=== PATIENT | female | born 1970 | race Hispanic/Latino ===

== ENCOUNTER → 2017-09-28 | Outpatient (CLI) | payer MEDICAID ==
[~2017-09-28] MED LIST: ACET1TAB12 PO; ATOR20TA65 PO; DICY10 PO; FAMO-136 PO; FURO40SO PO; FURO40TA7 PO; GLIP5TAB11 PO; JANUVIA; LACT10SO PO; LEVO50TA11 PO; METF10004 PO; PANT40TA25 PO; RIFA550T PO; SITA100T12 PO; SPIR100T5 PO
== END | disposition home or self-care (01) ==
LOC: RAH 07:38
PROVIDERS: ATTEND Internal Medicine Gastroenterology
DX: K70.31 Alcoholic cirrhosis of liver with ascites (principal); K80.20 Calculus of gallbladder without cholecystitis without obstruction
CPT/HCPCS: 76700; 93975

== ENCOUNTER 2017-10-22 06:00 | Day surgery (SDC) | payer MEDICAID ==
[~2017-10-22] VITALS: Ht 149.9 cm; Wt 82.4 kg
[~2017-10-22 06:00] MED LIST changes: -ACET1TAB12 PO; -FAMO-136 PO; -FURO40TA7 PO; -SITA100T12 PO
[2017-10-22 06:16] VITALS: BP 96/52
[2017-10-22] MEDS ORDERED: SODIUM CHLORIDE 0.9% 1000ML 1,000 ML IV ONE (06:42)
[2017-10-22] MEDS ORDERED: GLYCOPYRROLATE 0.2 MG/ML 5 ML VIAL ONE (07:59)
[2017-10-22] MEDS ORDERED: PROPOFOL 1000 MG/100 ML 100 ML IV ONE (07:59)
[2017-10-22] MEDS ORDERED: LIDOCAINE HCL 2% 20ML ONE (08:00)
[2017-10-22 08:29] VITALS: BP 88/45
[2017-10-22 08:39] VITALS: BP 95/55
[2017-10-22 08:54] VITALS: BP 105/65
== END 2017-10-22 09:25 | disposition home or self-care (01) ==
LOC: DAH 06:00
PROVIDERS: ATTEND Internal Medicine Gastroenterology
DX: D12.2 Benign neoplasm of ascending colon (principal); K57.30 Diverticulosis of large intestine without perforation or abscess without bleeding; C18.7 Malignant neoplasm of sigmoid colon; E11.9 Type 2 diabetes mellitus without complications; E78.5 Hyperlipidemia, unspecified; Z98.890 Other specified postprocedural states; Z98.51 Tubal ligation status; K70.30 Alcoholic cirrhosis of liver without ascites; Z68.36 Body mass index [BMI] 36.0-36.9, adult; Z79.899 Other long term (current) drug therapy; Z79.84 Long term (current) use of oral hypoglycemic drugs; K26.9 Duodenal ulcer, unspecified as acute or chronic, without hemorrhage or perforation; E66.9 Obesity, unspecified
CPT/HCPCS: 45380; 45381; 45385; 82948; 88305; A4606; J2704; J3490 ×2; J7030

== ENCOUNTER → 2017-11-16 | Outpatient (CLI) | payer MEDICAID ==
[~2017-11-16] MED LIST changes: +ACET1TAB12 PO; +FURO40TA7 PO; +IOPAMIDOL-370 100 ML VIAL IV ONE; +SITA100T12 PO
== END | disposition home or self-care (01) ==
LOC: OIH 07:59
PROVIDERS: ATTEND Internal Medicine
DX: C18.9 Malignant neoplasm of colon, unspecified (principal); R16.1 Splenomegaly, not elsewhere classified
CPT/HCPCS: 71270; 74178; Q9967

== ENCOUNTER 2017-11-26 13:30 | Inpatient (IN) | payer MEDICAID ==
[~2017-11-26] VITALS: Ht 149.9 cm; Wt 84.2 kg
[~2017-11-26 13:30] MED LIST changes: -ACET1TAB12 PO; -ATOR20TA65 PO; -FURO40SO PO; -FURO40TA7 PO; -IOPAMIDOL-370 100 ML VIAL IV ONE; -JANUVIA; -LACT10SO PO; -SITA100T12 PO
[2017-11-26 14:30] LABS: EOSINOPHILS % (AUTO) 3.9 % (0.0-8.0); HEMATOCRIT 36.7 % (36-48); LYMPHOCYTES % (AUTO) 25.3 % (21.0-51.0); MEAN CORPUSCULAR HEMOGLOBIN 31.2 pg (27.0-33.0); MEAN CORPUSCULAR HGB CONC 33.6 g/dL (32.0-36.0); MEAN CORPUSCULAR VOLUME 92.8 fL (79-99); MONOCYTES % (AUTO) 9.3 % (3.0-13.0); NEUTROPHILS % (AUTO) 60.5 % (40.0-77.0); NUCLEATED RED BLOOD CELLS 0.2 % (0.0-0.19); PLATELET COUNT (AUTO) 62 K/uL (130-400); RED BLOOD CELL COUNT(AUTO) 3.96 MIL/uL (4.00-5.50); RED CELL DISTRIBUTION WIDTH 15.4 % (11.0-15.5); WHITE BLOOD COUNT (AUTO) 3.2 K/uL (4.8-10.8)
[2017-11-26 14:31] LABS: APPEARANCE,URINE Cloudy (CLEAR); BILIRUBIN,URINE Negative (NEGATIVE); COLOR,URINE Yellow (YELLOW); GLUCOSE, URINE (UA) >=1000 mg/dL (NEGATIVE); KETONES,URINE Negative (NEGATIVE); LEUKOCYTE ESTERASE ,URINE Negative (NEGATIVE); NITRATE,URINE Negative (NEGATIVE); OCCULT BLOOD,URINE Negative (NEGATIVE); PROTEIN,URINE Negative (NEGATIVE)
[2017-11-26 14:36] VITALS: BP 117/61
[2017-11-26 14:38] LABS: CREATININE 1.1 mg/dL (0.5-1.5); POTASSIUM 3.7 mmol/L (3.5-5.1)
[2017-11-26 14:56] LABS: BACTERIA,URINE Rare /HPF (None Seen); RBC,URINE None Seen /HPF (0-1); WBC,URINE 0-1 /HPF (0-1)
[2017-11-26] MEDS ORDERED: ATOR20TA65 PO (15:00)
[2017-11-26] MEDS ORDERED: SITA100T12 PO (15:00)
[2017-11-26] MEDS ORDERED: FURO40TA7 PO (15:03)
[2017-11-26] MEDS ORDERED: LACT10SO PO (15:04)
[2017-11-26] MEDS: CEFOXITIN SODIUM 2 GM VIAL IVP SCH (16:00)
[2017-11-27] MEDS: CEFOXITIN SODIUM 2 GM VIAL IVP SCH (16:00)
[2017-11-28] MEDS: CEFOXITIN SODIUM 2 GM VIAL IVP SCH (16:00)
[2017-11-29] MEDS: CEFOXITIN SODIUM 2 GM VIAL IVP SCH (16:00)
[2017-11-30] VITALS (25 sets, daily range): BP systolic 110–141; BP diastolic 60–85
[2017-11-30] MEDS ORDERED: SODIUM CHLORIDE 0.9% 1000ML 1,000 ML IV ONE (06:58)
[2017-11-30] MEDS ORDERED: LIDOCAINE PF 2% 5ML ABBOJECT ONE (08:01)
[2017-11-30] MEDS ORDERED: ONDANSETRON HCL MDV 20ML 2 MG/ML VIAL ONE ×2 (08:01→08:03)
[2017-11-30] MEDS ORDERED: PROPOFOL 10 MG/ML 20ML VIAL IV ONE ×2 (08:01→11:25)
[2017-11-30] MEDS ORDERED: ROCURONIUM BROMIDE 10MG/1ML 5ML VL ONE ×2 (08:01→09:28)
[2017-11-30] MEDS ORDERED: FENTANYL CITRATE PF 50 MCG/1 ML 5ML AMP IV ONE ×3 (08:02→10:46)
[2017-11-30] MEDS ORDERED: MIDAZOLAM HCL 1 MG/ML 2ML VIAL ONE (08:03)
[2017-11-30] MEDS ORDERED: ALBUMIN (HUMAN) 5% 250 ML IV ONE (08:23)
[2017-11-30] MEDS: CEFOXITIN SODIUM 2 GM VIAL IVP SCH (08:45)
[2017-11-30] MEDS ORDERED: PHENYLEPHRINE HCL 10 MG/ML 1ML VIAL IV ONE (09:29)
[2017-11-30] MEDS ORDERED: SODIUM CHLORIDE 0.9% 10 ML VIAL ONE (09:29)
[2017-11-30] MEDS ORDERED: TRANEXAMIC ACID 1000MG/10ML IV ONE (09:57)
[2017-11-30] MEDS ORDERED: LIDOCAINE HCL 2% JELLY 5 ML ONE (10:55)
[2017-11-30] MEDS: CEFOXITIN SODIUM 2 GM VIAL ONE ×2 (11:09→11:10)
[2017-11-30] MEDS ORDERED: FUROSEMIDE 10 MG/ML 4ML VIAL ONE (11:10)
[2017-11-30] MEDS ORDERED: ONDANSETRON HCL 4 MG/2 ML VIAL IVP PRN (11:30)
[2017-11-30] MEDS ORDERED: MORPHINE-NS 50 MG/50 ML 50 ML IV PRN (11:30)
[2017-11-30] MEDS ORDERED: INSULIN HUMULIN R 100 UNIT/ML 3ML SQ PRN (11:30)
[2017-11-30] MEDS ORDERED: MEPERIDINE-PF 25 MG/ML SYG ONE (11:59)
[2017-11-30 12:03] LABS: HEMATOCRIT 34.3 % (36-48); MEAN CORPUSCULAR HEMOGLOBIN 32.1 pg (27.0-33.0); MEAN CORPUSCULAR HGB CONC 34.5 g/dL (32.0-36.0); MEAN CORPUSCULAR VOLUME 93.1 fL (79-99); PLATELET COUNT (AUTO) 117 K/uL (130-400); RED BLOOD CELL COUNT(AUTO) 3.68 MIL/uL (4.00-5.50); RED CELL DISTRIBUTION WIDTH 15.6 % (11.0-15.5); WHITE BLOOD COUNT (AUTO) 10.3 K/uL (4.8-10.8)
[2017-11-30] MEDS ORDERED: METOPROLOL TARTRATE 1 MG/ML 5ML VIAL IV ONE (12:03)
[2017-11-30 12:13] LABS: CREATININE 1.6 mg/dL (0.5-1.5); POTASSIUM 4.8 mmol/L (3.5-5.1)
[2017-11-30] MEDS: SODIUM CHLORIDE 0.9% 1000ML 1,000 ML IV SCH ×2 (13:35→23:13)
[2017-11-30] MEDS: CEFOXITIN SODIUM 1 GM VIAL IVP SCH ×2 (16:30→23:13)
[2017-11-30] MEDS ORDERED: CEFOXITIN 1GM+NS 100ML 100 ML IV SCH (17:00)
[2017-11-30] MEDS: FAMOTIDINE/PF 20 MG/2 ML VIAL IV SCH (20:07)
[2017-12-01] VITALS (7 sets, daily range): BP systolic 104–110; BP diastolic 56–65
[2017-12-01] MEDS: SODIUM CHLORIDE 0.9% 1000ML 1,000 ML IV SCH (03:29)
[2017-12-01] MEDS: CEFOXITIN SODIUM 1 GM VIAL IVP SCH (04:45)
[2017-12-01 05:43] LABS: BASOPHILS % (AUTO) 0.2 % (0.0-5.0); HEMATOCRIT 34.2 % (36-48); LYMPHOCYTES % (AUTO) 6.1 % (21.0-51.0); MEAN CORPUSCULAR HEMOGLOBIN 31.3 pg (27.0-33.0); MEAN CORPUSCULAR HGB CONC 33.7 g/dL (32.0-36.0); MONOCYTES % (AUTO) 10.3 % (3.0-13.0); NEUTROPHILS % (AUTO) 83.4 % (40.0-77.0); PLATELET COUNT (AUTO) 99 K/uL (130-400); RED BLOOD CELL COUNT(AUTO) 3.67 MIL/uL (4.00-5.50); RED CELL DISTRIBUTION WIDTH 15.4 % (11.0-15.5); WHITE BLOOD COUNT (AUTO) 11.4 K/uL (4.8-10.8)
[2017-12-01 05:51] LABS: CREATININE 1.2 mg/dL (0.5-1.5); POTASSIUM 4.4 mmol/L (3.5-5.1)
[2017-12-01] MEDS: FAMOTIDINE/PF 20 MG/2 ML VIAL IV SCH ×2 (11:03→21:18)
[2017-12-01] MEDS: FUROSEMIDE 10 MG/ML 4ML VIAL IV SCH (11:03)
[2017-12-02 04:00] VITALS: BP 118/56
[2017-12-02] MEDS: SODIUM CHLORIDE 0.9% 1000ML 1,000 ML IV SCH ×2 (05:07→17:03)
[2017-12-02 05:19] LABS: BASOPHILS % (AUTO) 0.4 % (0.0-5.0); EOSINOPHILS % (AUTO) 0.6 % (0.0-8.0); HEMATOCRIT 31.8 % (36-48); LYMPHOCYTES % (AUTO) 11.9 % (21.0-51.0); MEAN CORPUSCULAR HEMOGLOBIN 32.1 pg (27.0-33.0); MEAN CORPUSCULAR HGB CONC 34.5 g/dL (32.0-36.0); MONOCYTES % (AUTO) 12.1 % (3.0-13.0); PLATELET COUNT (AUTO) 78 K/uL (130-400); RED BLOOD CELL COUNT(AUTO) 3.42 MIL/uL (4.00-5.50); RED CELL DISTRIBUTION WIDTH 15.4 % (11.0-15.5); WHITE BLOOD COUNT (AUTO) 8.3 K/uL (4.8-10.8)
[2017-12-02 05:28] LABS: CREATININE 0.9 mg/dL (0.5-1.5)
[2017-12-02 08:40] VITALS: BP 112/58
[2017-12-02] MEDS: FAMOTIDINE/PF 20 MG/2 ML VIAL IV SCH ×2 (10:03→20:46)
[2017-12-02] MEDS: FUROSEMIDE 10 MG/ML 4ML VIAL IV SCH (10:04)
[2017-12-02] MEDS ORDERED: PHENOL 177 ML BOTTLE PO PRN (11:00)
[2017-12-02 11:08] VITALS: BP 111/66
[2017-12-02 16:18] VITALS: BP 105/61
[2017-12-02 19:21] VITALS: BP 105/58
[2017-12-02 23:21] VITALS: BP 111/61
[2017-12-03 03:26] VITALS: BP 113/72
[2017-12-03 04:31] LABS: CREATININE 0.8 mg/dL (0.5-1.5); POTASSIUM 3.7 mmol/L (3.5-5.1)
[2017-12-03 04:32] LABS: BASOPHILS % (AUTO) 0.3 % (0.0-5.0); EOSINOPHILS % (AUTO) 0.9 % (0.0-8.0); HEMATOCRIT 30.5 % (36-48); LYMPHOCYTES % (AUTO) 11.6 % (21.0-51.0); MEAN CORPUSCULAR HEMOGLOBIN 31.9 pg (27.0-33.0); MEAN CORPUSCULAR HGB CONC 34.3 g/dL (32.0-36.0); MEAN CORPUSCULAR VOLUME 93.1 fL (79-99); MONOCYTES % (AUTO) 11.2 % (3.0-13.0); PLATELET COUNT (AUTO) 62 K/uL (130-400); RED BLOOD CELL COUNT(AUTO) 3.28 MIL/uL (4.00-5.50); RED CELL DISTRIBUTION WIDTH 15.1 % (11.0-15.5); WHITE BLOOD COUNT (AUTO) 7.8 K/uL (4.8-10.8)
[2017-12-03 08:00] VITALS: BP 108/62
[2017-12-03] MEDS: FAMOTIDINE/PF 20 MG/2 ML VIAL IV SCH ×2 (11:19→20:51)
[2017-12-03] MEDS: FUROSEMIDE 10 MG/ML 4ML VIAL IV SCH (11:19)
[2017-12-03] MEDS: SODIUM CHLORIDE 0.9% 1000ML 1,000 ML IV SCH (11:26)
[2017-12-03 12:00] VITALS: BP 122/76
[2017-12-03] MEDS ORDERED: ACETAMINOPHEN-CODEINE 300/30MG TAB PO PRN (12:45)
[2017-12-03 16:00] VITALS: BP 102/55
[2017-12-03 20:00] VITALS: BP 124/66
[2017-12-03] MEDS: ACETAMINOPHEN-CODEINE 300/30MG TAB PO PRN (20:55)
[2017-12-03 23:46] VITALS: BP 102/54
[2017-12-04 03:47] VITALS: BP 94/52
[2017-12-04] MEDS: ACETAMINOPHEN-CODEINE 300/30MG TAB PO PRN ×2 (06:02→14:05)
[2017-12-04 08:00] VITALS: BP 104/60
[2017-12-04] MEDS: FUROSEMIDE 10 MG/ML 4ML VIAL IV SCH (09:38)
[2017-12-04] MEDS: FAMOTIDINE/PF 20 MG/2 ML VIAL IV SCH (09:38)
[2017-12-04] MEDS: SODIUM CHLORIDE 0.9% 1000ML 1,000 ML IV SCH (10:00)
[2017-12-04 12:00] VITALS: BP 96/87
[2017-12-04] MEDS ORDERED: ACET1TAB12 PO (12:32)
== END 2017-12-04 15:15 | disposition home or self-care (01) | DRG 231 ==
LOC: EDSTATUS 13:30 → DAHIP 11-30 05:53 → 3BH 11-30 13:06
PROVIDERS: ADMIT Surgery; ATTEND Surgery
PROC: 0DBN0ZZ Excision of Sigmoid Colon, Open Approach (ICD-10-PCS; principal; 2017-11-30 08:28)
PROC: 30233R1 Transfusion of Nonautologous Platelets into Peripheral Vein, Percutaneous Approach (ICD-10-PCS; 2017-11-30 08:28)
DX: C18.7 Malignant neoplasm of sigmoid colon (principal); D69.6 Thrombocytopenia, unspecified; R18.8 Other ascites; K74.60 Unspecified cirrhosis of liver; E11.9 Type 2 diabetes mellitus without complications; K66.0 Peritoneal adhesions (postprocedural) (postinfection); Z98.891 History of uterine scar from previous surgery; E07.9 Disorder of thyroid, unspecified
CPT/HCPCS: 36415; 80048; 81001; 82948; 85025; 85027; 86850; 86900; 86901; 86922; 88309; A4218; A4344; J0694; J1940; J2001; J2175; J2250; J2270; J2370; J2704; J3010; J3490; J7030; P9034; P9045

== ENCOUNTER → 2018-08-19 | Outpatient (CLI) | payer MEDICAID ==
[~2018-08-19] MED LIST changes: +ATOR20TA65 PO; +FURO40TA7 PO; +IOHEXOL-350 50ML VIAL IV ONE; +LACT10SO PO; +METF-446 PO; -METF10004 PO; +SITA100T12 PO
== END | disposition home or self-care (01) ==
LOC: RAH 07:39
PROVIDERS: ATTEND Internal Medicine Gastroenterology
DX: K70.31 Alcoholic cirrhosis of liver with ascites (principal); K80.20 Calculus of gallbladder without cholecystitis without obstruction; J90 Pleural effusion, not elsewhere classified; J98.11 Atelectasis; I86.8 Varicose veins of other specified sites; C18.9 Malignant neoplasm of colon, unspecified; R77.2 Abnormality of alphafetoprotein; I70.90 Unspecified atherosclerosis
CPT/HCPCS: 74170; Q9967

== ENCOUNTER 2018-08-22 00:21 | Inpatient (IN) | payer MEDICAID ==
[~2018-08-22] VITALS: Ht 149.9 cm; Wt 72.6 kg
[~2018-08-22 00:21] MED LIST changes: -IOHEXOL-350 50ML VIAL IV ONE
[2018-08-22] MEDS ORDERED: ONDANSETRON HCL 4 MG/2 ML VIAL ONE ×2 (00:41→11:35)
[2018-08-22] MEDS ORDERED: FENTANYL CITRATE PF 50 MCG/1 ML 2ML VIAL ONE ×2 (00:42→04:02)
[2018-08-22 00:51] LABS: APPEARANCE,URINE TURBID (CLEAR); BILIRUBIN,URINE NEGATIVE (NEGATIVE); GLUCOSE, URINE (UA) >=1000 mg/dL (NEGATIVE); KETONES,URINE NEGATIVE (NEGATIVE); LEUKOCYTE ESTERASE ,URINE MODERATE (NEGATIVE); NITRATE,URINE NEGATIVE (NEGATIVE); OCCULT BLOOD,URINE LARGE (NEGATIVE); PROTEIN,URINE NEGATIVE (NEGATIVE)
[2018-08-22 00:53] LABS: BASOPHILS % (AUTO) 0.8 % (0.0-5.0); EOSINOPHILS % (AUTO) 1.7 % (0.0-8.0); HEMATOCRIT 34.9 % (36-48); MEAN CORPUSCULAR HEMOGLOBIN 32.7 pg (27.0-33.0); MEAN CORPUSCULAR HGB CONC 33.6 g/dL (32.0-36.0); MEAN CORPUSCULAR VOLUME 97.3 fL (79-99); MONOCYTES % (AUTO) 6.1 % (3.0-13.0); NEUTROPHILS % (AUTO) 66.4 % (40.0-77.0); NUCLEATED RED BLOOD CELLS 0.1 % (0.0-0.19); RED BLOOD CELL COUNT(AUTO) 3.59 MIL/uL (4.00-5.50); RED CELL DISTRIBUTION WIDTH 15.8 % (11.0-15.5); WHITE BLOOD COUNT (AUTO) 3.2 K/uL (4.8-10.8)
[2018-08-22 00:59] LABS: COLOR,URINE Straw (YELLOW)
[2018-08-22 01:10] LABS: ALBUMIN 2.6 g/dL (3.5-5.0); BILIRUBIN,TOTAL 1.5 mg/dL (0.2-1.0); CREATININE 1.1 mg/dL (0.5-1.5); POTASSIUM 4.7 mmol/L (3.5-5.1); TOTAL PROTEIN, SERUM 6.7 g/dL (6.0-8.3)
[2018-08-22 01:31] LABS: BACTERIA,URINE Few /HPF (None Seen)
[2018-08-22] MEDS ORDERED: INSULIN HUMULIN R 100 UNIT/ML 3ML ONE ×3 (01:40→17:50)
[2018-08-22 02:35] LABS: PLATELET COUNT (AUTO) 37 K/uL (130-400)
[2018-08-22] MEDS ORDERED: ONDANSETRON HCL 4 MG/2 ML VIAL IV PRN (03:15)
[2018-08-22] MEDS ORDERED: MORPHINE SULFATE 2 MG/ML 1ML SYG IV PRN (03:15)
[2018-08-22] MEDS ORDERED: PHARMACY COMMUNICATION MISC SCH (03:30)
[2018-08-22] MEDS ORDERED: SODIUM CHLORIDE 0.9% 1000ML 1,000 ML IV ONE (04:01)
[2018-08-22] MEDS ORDERED: ZOSYN 3.375GM+NS 50ML 50 ML IV ONE ×2 (04:02→11:44)
[2018-08-22] MEDS ORDERED: ZOSYN 3.375GM+NS 50ML 50 ML IV SCH (05:00)
[2018-08-22] MEDS ORDERED: INSULIN HUMULIN R 100 UNIT/ML 3ML SQ SCH (07:30)
[2018-08-22] MEDS: FAMOTIDINE/PF 20 MG/2 ML VIAL IV SCH ×2 (09:00→21:10)
[2018-08-22] MEDS ORDERED: FAMOTIDINE/PF 20 MG/2 ML VIAL IV ONE (09:49)
[2018-08-22] MEDS ORDERED: LACTULOSE 20 GM/30 ML UDCUP PO PRN (11:15)
[2018-08-22] MEDS ORDERED: LACTULOSE 20 GM/30 ML UDCUP ONE (11:22)
[2018-08-22] MEDS ORDERED: MORPHINE SULFATE 2 MG/ML 1ML SYG ONE (11:35)
--- NOTE | 2018-08-22 15:24 | NUR ---
DC Plan Discussed dcp w/ patient. Lives w/ dad. Has provider that cooks, cleans and assists w/ bathing. Denies any HH or DME. States father or brother drives patient. Denies recent falls. States feels safe returning home to same setting. DCP is back to home. CD Addendum: 08/22/18 at 1526 by OLY ALMANZA CM Amended: Links added.
[2018-08-22] MEDS: INSULIN HUMULIN R 100 UNIT/ML 3ML SQ SCH ×2 (16:30→21:08)
--- NOTE | 2018-08-22 18:06 | NUR ---
REPORT RECEIVED FROM RONIT IN ER FOR PT. GOING TO ROOM 330
[2018-08-22 18:20] VITALS: BP 92/54
--- NOTE | 2018-08-22 18:20 | NUR ---
PT. NOW TO ROOM 330, AWAKE, ALERT AND IN NO DISTRESS AT THIS TIME. ADMISSION DATABASE WILL BE DONE.
--- NOTE | 2018-08-22 18:45 | NUR ---
HAS PROVIDER SERVICES Addendum: 08/22/18 at 1849 by ALMA ROSA GALLARDO RN RN Amended: Links added.
[2018-08-22 21:09] VITALS: BP 85/46
[2018-08-22] MEDS: ZOSYN 3.375GM+NS 50ML 50 ML IV SCH (21:10)
[2018-08-22] MEDS: ATORVASTATIN CALCIUM 20 MG TABLET PO SCH (21:10)
[2018-08-22] MEDS: RIFAXIMIN 550 MG TABLET PO SCH (21:11)
[2018-08-23] VITALS (7 sets, daily range): BP systolic 84–97; BP diastolic 44–63
[2018-08-23] MEDS ORDERED: SODIUM CHLORIDE 0.9% 1000ML 1,000 ML IV SCH (01:00)
[2018-08-23 05:22] LABS: HEMATOCRIT 29.5 % (36-48); MEAN CORPUSCULAR HEMOGLOBIN 32.4 pg (27.0-33.0); MEAN CORPUSCULAR HGB CONC 33.8 g/dL (32.0-36.0); MEAN CORPUSCULAR VOLUME 96.1 fL (79-99); NUCLEATED RED BLOOD CELLS 0.2 % (0.0-0.19); PLATELET COUNT (AUTO) 30 K/uL (130-400); RED BLOOD CELL COUNT(AUTO) 3.07 MIL/uL (4.00-5.50); RED CELL DISTRIBUTION WIDTH 15.7 % (11.0-15.5); WHITE BLOOD COUNT (AUTO) 3.1 K/uL (4.8-10.8)
[2018-08-23] MEDS: LEVOTHYROXINE 50 MCG TABLET PO SCH (05:31)
[2018-08-23 05:41] LABS: BILIRUBIN,TOTAL 2.2 mg/dL (0.2-1.0); CREATININE 0.8 mg/dL (0.5-1.5); POTASSIUM 3.7 mmol/L (3.5-5.1); TOTAL PROTEIN, SERUM 5.2 g/dL (6.0-8.3)
[2018-08-23] MEDS: INSULIN HUMULIN R 100 UNIT/ML 3ML SQ SCH ×4 (06:05→22:00)
[2018-08-23] MEDS: SPIRONOLACTONE 25 MG TAB PO SCH (09:42)
[2018-08-23] MEDS: ZOSYN 3.375GM+NS 50ML 50 ML IV SCH ×2 (09:43→22:03)
[2018-08-23] MEDS: RIFAXIMIN 550 MG TABLET PO SCH ×2 (09:43→22:03)
[2018-08-23] MEDS: FUROSEMIDE 40 MG TABLET PO SCH (09:43)
[2018-08-23] MEDS: LACTULOSE 20 GM/30 ML UDCUP PO SCH (09:43)
[2018-08-23] MEDS: FAMOTIDINE/PF 20 MG/2 ML VIAL IV SCH ×2 (09:43→22:03)
[2018-08-23] MEDS: MORPHINE SULFATE 2 MG/ML 1ML SYG IV PRN (17:32)
[2018-08-23] MEDS: ATORVASTATIN CALCIUM 20 MG TABLET PO SCH (22:03)
[2018-08-24] MEDS: MORPHINE SULFATE 2 MG/ML 1ML SYG IV PRN ×2 (00:59→21:51)
[2018-08-24 01:38] VITALS: BP 93/49
[2018-08-24 05:08] LABS: CREATININE 0.9 mg/dL (0.5-1.5); POTASSIUM 3.7 mmol/L (3.5-5.1)
[2018-08-24 05:12] LABS: BASOPHILS % (AUTO) 0.9 % (0.0-5.0); EOSINOPHILS % (AUTO) 3.1 % (0.0-8.0); LYMPHOCYTES % (AUTO) 21.3 % (21.0-51.0); MEAN CORPUSCULAR HEMOGLOBIN 32.4 pg (27.0-33.0); MEAN CORPUSCULAR HGB CONC 33.8 g/dL (32.0-36.0); MEAN CORPUSCULAR VOLUME 95.8 fL (79-99); MONOCYTES % (AUTO) 12.5 % (3.0-13.0); NEUTROPHILS % (AUTO) 62.2 % (40.0-77.0); NUCLEATED RED BLOOD CELLS 0.2 % (0.0-0.19); PLATELET COUNT (AUTO) 35 K/uL (130-400); RED BLOOD CELL COUNT(AUTO) 3.03 MIL/uL (4.00-5.50); RED CELL DISTRIBUTION WIDTH 15.7 % (11.0-15.5); WHITE BLOOD COUNT (AUTO) 3.6 K/uL (4.8-10.8)
[2018-08-24] MEDS: LEVOTHYROXINE 50 MCG TABLET PO SCH (05:15)
[2018-08-24 05:53] VITALS: BP 95/51
[2018-08-24] MEDS: INSULIN HUMULIN R 100 UNIT/ML 3ML SQ SCH ×4 (06:14→21:44)
[2018-08-24 08:00] VITALS: BP 88/55
[2018-08-24] MEDS: FUROSEMIDE 40 MG TABLET PO SCH (09:00)
[2018-08-24] MEDS: SPIRONOLACTONE 25 MG TAB PO SCH (09:00)
[2018-08-24] MEDS: LACTULOSE 20 GM/30 ML UDCUP PO SCH (09:37)
[2018-08-24] MEDS: FAMOTIDINE/PF 20 MG/2 ML VIAL IV SCH ×2 (09:37→21:51)
[2018-08-24] MEDS: RIFAXIMIN 550 MG TABLET PO SCH ×2 (09:37→21:52)
[2018-08-24] MEDS: ZOSYN 3.375GM+NS 50ML 50 ML IV SCH ×2 (09:38→21:52)
[2018-08-24] MEDS ORDERED: MECLIZINE HCL 12.5 MG TABLET PO PRN (11:00)
[2018-08-24 12:00] VITALS: BP_SYST 100; BP_SYST 106; BP_SYST 97; BP_DIAS 63; BP_DIAS 69
[2018-08-24] MEDS ORDERED: TRAMADOL HCL 50 MG TABLET PO PRN (15:45)
[2018-08-24 16:00] VITALS: BP 96/61
[2018-08-24 20:00] VITALS: BP 126/72
[2018-08-24] MEDS: ATORVASTATIN CALCIUM 20 MG TABLET PO SCH (21:52)
[2018-08-25] VITALS: BP 104/58
[2018-08-25 03:05] VITALS: BP 96/57
[2018-08-25 05:02] LABS: BASOPHILS % (AUTO) 0.9 % (0.0-5.0); EOSINOPHILS % (AUTO) 2.2 % (0.0-8.0); HEMATOCRIT 29.5 % (36-48); LYMPHOCYTES % (AUTO) 24.7 % (21.0-51.0); MEAN CORPUSCULAR HEMOGLOBIN 32.1 pg (27.0-33.0); MEAN CORPUSCULAR HGB CONC 33.3 g/dL (32.0-36.0); MEAN CORPUSCULAR VOLUME 96.4 fL (79-99); MONOCYTES % (AUTO) 20.3 % (3.0-13.0); NEUTROPHILS % (AUTO) 51.9 % (40.0-77.0); NUCLEATED RED BLOOD CELLS 0.2 % (0.0-0.19); PLATELET COUNT (AUTO) 45 K/uL (130-400); RED BLOOD CELL COUNT(AUTO) 3.06 MIL/uL (4.00-5.50); RED CELL DISTRIBUTION WIDTH 15.4 % (11.0-15.5); WHITE BLOOD COUNT (AUTO) 3.2 K/uL (4.8-10.8)
[2018-08-25 05:18] LABS: CREATININE 0.8 mg/dL (0.5-1.5); POTASSIUM 3.7 mmol/L (3.5-5.1)
[2018-08-25] MEDS: INSULIN HUMULIN R 100 UNIT/ML 3ML SQ SCH ×2 (05:40→11:53)
[2018-08-25] MEDS: LEVOTHYROXINE 50 MCG TABLET PO SCH (05:41)
[2018-08-25 08:00] VITALS: BP 90/57
[2018-08-25] MEDS: ZOSYN 3.375GM+NS 50ML 50 ML IV SCH (09:00)
[2018-08-25] MEDS: SPIRONOLACTONE 25 MG TAB PO SCH (09:00)
[2018-08-25] MEDS: FUROSEMIDE 40 MG TABLET PO SCH (09:00)
[2018-08-25] MEDS ORDERED: TRAM50TA4 PO (09:17)
[2018-08-25] MEDS ORDERED: MECL12.585 PO (09:17)
[2018-08-25] MEDS: LACTULOSE 20 GM/30 ML UDCUP PO SCH (09:55)
[2018-08-25] MEDS: RIFAXIMIN 550 MG TABLET PO SCH (09:55)
[2018-08-25] MEDS: FAMOTIDINE/PF 20 MG/2 ML VIAL IV SCH (09:56)
--- NOTE | 2018-08-25 11:05 | NUR ---
Diet Education RD Provided Low Fat diet Education. Patient was engaged and verbalized understanding. Discussed favorite foods and substitutions. RD also provided reference materials and handouts. RD to follow up. Addendum: 08/25/18 at 15[address]L PÉREZ RD RD Amended: Links added.
[2018-08-25 12:00] VITALS: BP 136/87
== END 2018-08-25 14:05 | disposition home or self-care (01) | DRG 463 ==
LOC: EDH 00:21 → EDHIP 00:22 → 3AH 18:19
PROVIDERS: ADMIT Hospitalist; ATTEND Hospitalist
DX: N39.0 Urinary tract infection, site not specified (principal); E43 Unspecified severe protein-calorie malnutrition; D61.810 Antineoplastic chemotherapy induced pancytopenia; I95.9 Hypotension, unspecified; K80.00 Calculus of gallbladder with acute cholecystitis without obstruction; E87.1 Hypo-osmolality and hyponatremia; E83.51 Hypocalcemia; K70.30 Alcoholic cirrhosis of liver without ascites; E03.9 Hypothyroidism, unspecified; E11.9 Type 2 diabetes mellitus without complications; T45.1X5A Adverse effect of antineoplastic and immunosuppressive drugs, initial encounter; Y92.89 Other specified places as the place of occurrence of the external cause; Z85.038 Personal history of other malignant neoplasm of large intestine; Z80.0 Family history of malignant neoplasm of digestive organs; Z82.3 Family history of stroke; Z87.891 Personal history of nicotine dependence; Z79.84 Long term (current) use of oral hypoglycemic drugs; Z68.32 Body mass index [BMI] 32.0-32.9, adult
CPT/HCPCS: 36415; 76705; 80048; 80053; 81001; 82948; 83690; 85025; 85027; 87077; 87088; 87186; G0378; J1815; J2405; J2543; J3010; J3490; J7030

== ENCOUNTER 2018-09-20 08:56 | Emergency (ER) | payer MEDICAID ==
[~2018-09-20 08:56] MED LIST changes: +MECL12.585 PO; +TRAM50TA4 PO
[2018-09-20 09:24] LABS: APPEARANCE,URINE Clear (CLEAR); BILIRUBIN,URINE Negative (NEGATIVE); COLOR,URINE Yellow (YELLOW); GLUCOSE, URINE (UA) 250 mg/dL (NEGATIVE); KETONES,URINE Negative (NEGATIVE); LEUKOCYTE ESTERASE ,URINE Trace (NEGATIVE); NITRATE,URINE Negative (NEGATIVE); OCCULT BLOOD,URINE Negative (NEGATIVE); PROTEIN,URINE Negative (NEGATIVE)
[2018-09-20 09:33] LABS: BACTERIA,URINE Rare /HPF (None Seen); RBC,URINE 0-1 /HPF (0-1); SQUAMOUS EPITHELIAL CELL,UR Rare /HPF (0-2); WBC,URINE 0-1 /HPF (0-1)
[2018-09-20] MEDS ORDERED: LACTULOSE 20 GM/30 ML UDCUP ONE (10:08)
[2018-09-20 11:09] LABS: BASOPHILS % (AUTO) 0.7 % (0.0-5.0); EOSINOPHILS % (AUTO) 2.5 % (0.0-8.0); HEMATOCRIT 34.5 % (36-48); LYMPHOCYTES % (AUTO) 17.6 % (21.0-51.0); MEAN CORPUSCULAR HEMOGLOBIN 32.4 pg (27.0-33.0); MEAN CORPUSCULAR HGB CONC 33.9 g/dL (32.0-36.0); MEAN CORPUSCULAR VOLUME 95.3 fL (79-99); MONOCYTES % (AUTO) 11.4 % (3.0-13.0); NEUTROPHILS % (AUTO) 67.8 % (40.0-77.0); PLATELET COUNT (AUTO) 40 K/uL (130-400); RED BLOOD CELL COUNT(AUTO) 3.61 MIL/uL (4.00-5.50); RED CELL DISTRIBUTION WIDTH 16.4 % (11.0-15.5); WHITE BLOOD COUNT (AUTO) 3.8 K/uL (4.8-10.8)
[2018-09-20 11:21] LABS: POTASSIUM 4.3 mmol/L (3.5-5.1)
[2018-09-20 11:22] LABS: ALBUMIN 2.6 g/dL (3.5-5.0); BILIRUBIN,TOTAL 1.4 mg/dL (0.2-1.0); TOTAL PROTEIN, SERUM 6.6 g/dL (6.0-8.3)
== END 2018-09-20 15:43 | disposition home or self-care (01) ==
LOC: EDH 08:56
DX: K81.0 Acute cholecystitis (principal); K74.69 Other cirrhosis of liver; E11.9 Type 2 diabetes mellitus without complications; E78.5 Hyperlipidemia, unspecified; E07.9 Disorder of thyroid, unspecified; Z85.038 Personal history of other malignant neoplasm of large intestine; Z87.891 Personal history of nicotine dependence
CPT/HCPCS: 36415; 74018; 76705; 80053; 81001; 82140; 85025

== ENCOUNTER 2018-10-18 19:58 | Emergency (ER) | payer MEDICAID ==
[2018-10-18 21:14] LABS: BASOPHILS % (AUTO) 0.8 % (0.0-5.0); EOSINOPHILS % (AUTO) 0.1 % (0.0-8.0); HEMATOCRIT 36.4 % (36-48); LYMPHOCYTES % (AUTO) 3.4 % (21.0-51.0); MEAN CORPUSCULAR HEMOGLOBIN 33.1 pg (27.0-33.0); MEAN CORPUSCULAR HGB CONC 34.2 g/dL (32.0-36.0); MEAN CORPUSCULAR VOLUME 96.9 fL (79-99); MONOCYTES % (AUTO) 11.3 % (3.0-13.0); NEUTROPHILS % (AUTO) 84.4 % (40.0-77.0); NUCLEATED RED BLOOD CELLS 0.1 % (0.0-0.19); PLATELET COUNT (AUTO) 104 K/uL (130-400); RED BLOOD CELL COUNT(AUTO) 3.76 MIL/uL (4.00-5.50); RED CELL DISTRIBUTION WIDTH 18.1 % (11.0-15.5); WHITE BLOOD COUNT (AUTO) 10.2 K/uL (4.8-10.8)
[2018-10-18 21:26] LABS: CREATININE 1.2 mg/dL (0.5-1.5); POTASSIUM 3.6 mmol/L (3.5-5.1)
[2018-10-18 21:30] LABS: ALBUMIN 2.6 g/dL (3.5-5.0); BILIRUBIN,TOTAL 3.5 mg/dL (0.2-1.0); TOTAL PROTEIN, SERUM 6.3 g/dL (6.0-8.3)
[2018-10-18] MEDS ORDERED: ONDANSETRON HCL 4 MG/2 ML VIAL ONE (21:36)
[2018-10-18] MEDS ORDERED: MORPHINE SULFATE 4 MG/1ML SYG ONE (21:36)
[2018-10-18 21:55] LABS: APPEARANCE,URINE Clear (CLEAR); BILIRUBIN,URINE Small (NEGATIVE); COLOR,URINE Dark Yellow (YELLOW); GLUCOSE, URINE (UA) >=1000 mg/dL (NEGATIVE); KETONES,URINE Trace mg/dL (NEGATIVE); LEUKOCYTE ESTERASE ,URINE Negative (NEGATIVE); NITRATE,URINE Negative (NEGATIVE); OCCULT BLOOD,URINE Negative (NEGATIVE); PROTEIN,URINE Negative (NEGATIVE)
[2018-10-18 22:04] LABS: BACTERIA,URINE Few /HPF (None Seen); RBC,URINE 0-1 /HPF (0-1); SQUAMOUS EPITHELIAL CELL,UR Few /HPF (0-2); WBC,URINE 0-1 /HPF (0-1)
[2018-10-18 22:05] LABS: MUCUS,URINE Rare LPF (None Seen)
== END 2018-10-18 23:28 | disposition home or self-care (01) ==
LOC: EDH 19:58
DX: K74.60 Unspecified cirrhosis of liver (principal); R10.84 Generalized abdominal pain; G89.29 Other chronic pain; E78.5 Hyperlipidemia, unspecified; E07.9 Disorder of thyroid, unspecified; E11.9 Type 2 diabetes mellitus without complications; Z85.038 Personal history of other malignant neoplasm of large intestine; Z98.890 Other specified postprocedural states
CPT/HCPCS: 36415; 76705; 80053; 81001; 82150; 83690; 84484; 85025; 93005; 96374; 96375; 99285; J2270; J2405

== ENCOUNTER 2018-10-23 09:16 | Inpatient (IN) | payer MEDICAID ==
[~2018-10-23] VITALS: Ht 142.2 cm; Wt 75.3 kg
[2018-10-23 10:21] LABS: BASOPHILS % (AUTO) 0.8 % (0.0-5.0); EOSINOPHILS % (AUTO) 0.2 % (0.0-8.0); HEMATOCRIT 35.8 % (36-48); LYMPHOCYTES % (AUTO) 3.3 % (21.0-51.0); MEAN CORPUSCULAR HEMOGLOBIN 32.1 pg (27.0-33.0); MEAN CORPUSCULAR HGB CONC 33.1 g/dL (32.0-36.0); MEAN CORPUSCULAR VOLUME 96.9 fL (79-99); NEUTROPHILS % (AUTO) 84.7 % (40.0-77.0); PLATELET COUNT (AUTO) 250 K/uL (130-400); RED BLOOD CELL COUNT(AUTO) 3.69 MIL/uL (4.00-5.50); RED CELL DISTRIBUTION WIDTH 18.3 % (11.0-15.5); WHITE BLOOD COUNT (AUTO) 12.1 K/uL (4.8-10.8)
[2018-10-23 10:27] LABS: CREATININE 1.5 mg/dL (0.5-1.5); POTASSIUM 4.7 mmol/L (3.5-5.1)
[2018-10-23 10:30] LABS: INR 1.1 (0.85-1.15); PARTIAL THROMBOPLASTIN TIME 32.7 SEC (26.3-35.5); PROTHROMBIN TIME 11.5 SEC (9.6-11.6)
[2018-10-23 10:36] LABS: ALBUMIN 2.2 g/dL (3.5-5.0); MAGNESIUM 2.4 mg/dL (1.80-2.40); TOTAL PROTEIN, SERUM 5.8 g/dL (6.0-8.3)
[2018-10-23] MEDS: THIAMINE HCL 100 MG/ML 2ML VIAL IV SCH (12:55)
[2018-10-23] MEDS ORDERED: ONDANSETRON HCL 4 MG/2 ML VIAL IVP PRN (13:00)
[2018-10-23] MEDS ORDERED: LACTULOSE 20 GM/30 ML UDCUP ONE (13:28)
--- NOTE | 2018-10-23 14:40 | NUR ---
ADMISSION FROM ER. PER SERVICES OF DR. TRAYLOR. PT IS LETHARGIC . TO VERBAL RESPOND . PT IS LYING ON HER RT SIDE. . REVIEW PLAN OF CARE WITH PT .
[2018-10-23 14:45] VITALS: BP 107/73
[2018-10-23 16:00] VITALS: BP 111/63
[2018-10-23] MEDS ORDERED: FURO40TA5 PO (17:24)
[2018-10-23] MEDS ORDERED: HYDR-4060 PO (17:24)
[2018-10-23] MEDS ORDERED: TRAM50TA4 PO (17:24)
[2018-10-23] MEDS ORDERED: ONDA4TAB4 PO (17:24)
[2018-10-23] MEDS ORDERED: SPIR100T PO (17:24)
[2018-10-23] MEDS ORDERED: LEVO50 PO (17:24)
[2018-10-23] MEDS ORDERED: AEC81 PO (17:24)
[2018-10-23] MEDS ORDERED: RIFA550T PO (17:24)
[2018-10-23] MEDS ORDERED: GLIP10TA9 PO (17:24)
[2018-10-23] MEDS ORDERED: ATOR20TA PO (17:24)
[2018-10-23] MEDS ORDERED: MECL12.585 PO (17:24)
[2018-10-23] MEDS ORDERED: ELTR50TA PO (17:24)
[2018-10-23] MEDS ORDERED: GLIP5TAB11 PO ×2 (17:24)
[2018-10-23] MEDS ORDERED: PANT40TA25 PO (17:24)
[2018-10-23] MEDS ORDERED: METF-446 PO ×2 (17:24)
[2018-10-23] MEDS: LACTULOSE 20 GM/30 ML UDCUP PO SCH ×2 (18:02→21:55)
[2018-10-23] MEDS ORDERED: DEXTROSE 50%-WATER 50 ML DISP.SYRIN IV PRN (18:30)
[2018-10-23] MEDS ORDERED: GLUCAGON 1MG KIT 1 MG ML IM PRN (18:30)
--- NOTE | 2018-10-23 18:45 | NUR ---
DR. BURNS HERE AND UPDATE OF PT MENTAL STATUS AND INTAKE OF THE LACTULOSE . NEEDED PO AND THAT SHE DOES NOT TAKE IT WELL . WITH ORDERS TO FOLLOW . FAMILY AT THE BEDSIDE AND EXPLAIN TO THEM REG ARDING NEEDED NG T UBE . PLACEMENT . PER PT FAMILY INFORMATION . PT HAS NOT HAD A STOOL SINCE WEDNESDAY ./ THE 09-20-18
[2018-10-23 19:31] VITALS: BP 117/63
--- NOTE | 2018-10-23 21:35 | NUR ---
14FR NG TUBE INSERTED DOWN RIGHT NARE. TUBE SECRURED AND PLACEMENT VERIFIED WITHOUT SIGNS OF RESPIRATION DISTRESS/ASPIRATION NOTED AT THIS TIME. MILD BLEEDING DUE TO UNSUCCESSFUL ATTEMPT DOWN LEFT NARE. PATIENT CONTINUES VERY LETHARGIC, MOVES AROUND IN BED, OPENS EYES, BUT VERBALLY UNRESPONSIVE. WILL CONTINUE TO MONITOR.
[2018-10-23] MEDS: FAMOTIDINE/PF 20 MG/2 ML VIAL IV SCH (21:52)
[2018-10-23] MEDS: RIFAXIMIN 550 MG TABLET PO SCH (21:52)
[2018-10-23] MEDS: INSULIN HUMULIN R 100 UNIT/ML 3ML SQ SCH (21:57)
[2018-10-24] VITALS (28 sets, daily range): BP systolic 96–131; BP diastolic 54–84
--- NOTE | 2018-10-24 02:40 | NUR ---
PER TELE, INCREASED HEART RATE ST 130'S-150'S, BP 131/74, CONTINUES VERBALLY UNRESPONSIVE, WITH INTERMITTENT PERIODS OF RESTLESSNESS. NO BM YET DESPITE ADMINISTRATION OF LACTULOSE. CALLED DR. TRAYLOR TO PROVIDE UPDATE, NEW ORDERS GIVEN, INCLUDING UA, BLOOD CULTURES, START ROCEPHIN IV, IV FLUID, EXTRA DOSE OF LACTULOSE AND ORDER FOR SS ENEMA.
[2018-10-24] MEDS ORDERED: LACTULOSE 20 GM/30 ML UDCUP PO SCH (03:00)
[2018-10-24] MEDS ORDERED: SODIUM CHLORIDE 0.9% 500ML 500 ML IV SCH (03:00)
[2018-10-24] MEDS ORDERED: CEFTRIAXONE SODIUM 1 GM ONE (03:08)
[2018-10-24] MEDS ORDERED: SODIUM CHLORIDE 0.9% 500ML 500 ML IV ONE (03:08)
--- NOTE | 2018-10-24 03:15 | NUR ---
PERSISTENT HYPOACTIVE BOWEL SOUNDS. SOAP SUDS ENEMA GIVEN, NO IMPACTION NOTED, HAD VERY SMALL AMOUNT OF FECAL MATTER FROM ENEMA. PATIENT CONTINUES ST 120'S-140'S. STILL VERBALLY UNRESPONSIVE
[2018-10-24] MEDS: CEFTRIAXONE SODIUM 1 GM IVP SCH (03:43)
[2018-10-24 03:56] LABS: APPEARANCE,URINE Clear (CLEAR); BILIRUBIN,URINE Moderate (NEGATIVE); COLOR,URINE Dark Yellow (YELLOW); GLUCOSE, URINE (UA) TRACE mg/dL (NEGATIVE); KETONES,URINE 15 mg/dL (NEGATIVE); LEUKOCYTE ESTERASE ,URINE Negative (NEGATIVE); NITRATE,URINE Negative (NEGATIVE); OCCULT BLOOD,URINE Negative (NEGATIVE); PH,URINE 5.5 (5.0-8.0); PROTEIN,URINE Negative (NEGATIVE)
[2018-10-24 04:04] LABS: AMPHET/METH SCREEN,URINE NEGATIVE (NEGATIVE); BARBITURATE SCREEN, URINE NEGATIVE (NEGATIVE); BENZODIAZEPINES SCREEN,URINE NEGATIVE (NEGATIVE); CANNABINOID SCREEN,URINE NEGATIVE (NEGATIVE); COCAINE SCREEN,URINE NEGATIVE (NEGATIVE); OPIATE SCREEN,URINE POSITIVE (NEGATIVE); PHENCYCLIDINE SCREEN,URINE NEGATIVE (NEGATIVE)
[2018-10-24 04:20] LABS: RBC,URINE 0-1 /HPF (0-1)
[2018-10-24 04:21] LABS: AMORPHOUS SEDIMENT,UR Rare /LPF (None Seen); BACTERIA,URINE None Seen /HPF (None Seen); SQUAMOUS EPITHELIAL CELL,UR Moderate /HPF (0-2); WBC,URINE None Seen /HPF (0-1)
[2018-10-24 05:54] LABS: HEMATOCRIT 35.5 % (36-48); MEAN CORPUSCULAR HEMOGLOBIN 32.2 pg (27.0-33.0); MEAN CORPUSCULAR HGB CONC 33.2 g/dL (32.0-36.0); MEAN CORPUSCULAR VOLUME 96.9 fL (79-99); NUCLEATED RED BLOOD CELLS 0.2 % (0.0-0.19); PLATELET COUNT (AUTO) 283 K/uL (130-400); RED BLOOD CELL COUNT(AUTO) 3.66 MIL/uL (4.00-5.50); RED CELL DISTRIBUTION WIDTH 18.3 % (11.0-15.5); WHITE BLOOD COUNT (AUTO) 13.6 K/uL (4.8-10.8)
[2018-10-24 06:18] LABS: ALBUMIN 2.3 g/dL (3.5-5.0); BILIRUBIN,TOTAL 1.9 mg/dL (0.2-1.0); CREATININE 1.7 mg/dL (0.5-1.5); POTASSIUM 4.8 mmol/L (3.5-5.1); THYROID STIMULATING HORMONE 1.56 uIU/mL (0.36-3.74); TOTAL PROTEIN, SERUM 6.2 g/dL (6.0-8.3)
[2018-10-24] MEDS: LEVOTHYROXINE 50 MCG TABLET PO SCH (06:35)
[2018-10-24] MEDS: INSULIN HUMULIN R 100 UNIT/ML 3ML SQ SCH ×4 (06:36→21:23)
--- NOTE | 2018-10-24 06:40 | NUR ---
CRITICAL VALUE CALLED IN BY LAB-INCREASED AMMONIA 354. PATIENT CONTINUES UNRESPONSIVE, SINUS TACHY 120'S-130'S, ABDOMEN INCREASINGLY DISTENDED, NO BOWEL SOUNDS NOTED THIS AM AND STILL NO BM. DR TRAYLOR WAS AGAIN CALLED TO UPDATE, NEW ORDERS GIVEN FOR LACTULOSE ENEMA PER PHARMACY PROTOCOL AND GO LYTELY 30CC Q30 MINUTES TIL BM.
--- NOTE | 2018-10-24 07:30 | NUR ---
WHILE CHARGE NURSE IN ROOM TO SEE PATIENT AND CHECKING NG TUBE PLACEMENT, PATIENT STARTED THROWING UP YELLOW-COLORED BILE DRAINAGE. PATIENT STILL UNRESPONSIVE, BECAME FLACCID. PATIENT A FULL CODE, HAS CONTINUED DETERIORATING SINCE ARRIVING ON THIS UNIT. DR. TRAYLOR WAS PAGED TO UPDATE, ORDER GIVEN TO TRANSFER TO ICU.
[2018-10-24] MEDS ORDERED: PEG 3350/NA SULF,BICARB,CL/KCL 4000 ML SOLN PO SCH (08:15)
[2018-10-24] MEDS ORDERED: LACTULOSE 20 GM/30 ML UDCUP PR SCH (08:30)
[2018-10-24] MEDS: THIAMINE HCL 100 MG/ML 2ML VIAL IV SCH (09:00)
[2018-10-24] MEDS: FAMOTIDINE/PF 20 MG/2 ML VIAL IV SCH ×2 (09:00→20:12)
[2018-10-24] MEDS: RIFAXIMIN 550 MG TABLET PO SCH ×2 (09:00→20:13)
[2018-10-24] MEDS: LACTULOSE 20 GM/30 ML UDCUP PO SCH ×2 (11:54→16:12)
--- NOTE | 2018-10-24 14:23 | NUR ---
Patient intubated by Dr. Lynn in room 217. No complications with procedure. Patient is stable at this time. Dr. Lynn is aware of patients heart rate. He said it was ok for patient to go to CT.
[2018-10-24 15:42] LABS: ABG BASE EXCESS -0.6 mmol/L (-2.0-3.0); ABG HCO3 21.8 mmol/L (21.0-28.0); ABG OXYGEN SATURATION 98.4 % (95.0-99.0); ABG PCO2 30 mmHg (32-45)
--- NOTE | 2018-10-24 16:35 | NUR ---
Patient taken for CT of abdomen with no contrast. Patient handled procedure well. Patient is back in room. No complication at this time.
[2018-10-24] MEDS ORDERED: SODIUM CHLORIDE 0.9% 1000ML 1,000 ML IV ONE ×2 (19:34→20:00)
[2018-10-24] MEDS: LACTULOSE 20 GM/30 ML UDCUP PR SCH (20:00)
[2018-10-24] MEDS: SODIUM CHLORIDE 0.9% 1000ML 1,000 ML IV SCH (20:12)
[2018-10-24] MEDS: NEOMYCIN SULFATE 500 MG TAB PO SCH (20:13)
[2018-10-24] MEDS ORDERED: DILTIAZEM 125MG+100 ML NS 125 ML IV PRN (21:15)
--- NOTE | 2018-10-24 21:17 | NUR ---
Notified nurse of patient having some loose teeth on the bottom . Addendum: 10/24/18 at 2118 by NONI HAN RT Amended: Links added.
[2018-10-25] VITALS (20 sets, daily range): BP systolic 80–121; BP diastolic 33–69
[2018-10-25] MEDS: LACTULOSE 20 GM/30 ML UDCUP PR SCH ×4 (00:10→12:02)
[2018-10-25] MEDS: CEFTRIAXONE SODIUM 1 GM IVP SCH (02:48)
[2018-10-25 04:01] LABS: BASOPHILS % (AUTO) 0.1 % (0.0-5.0); EOSINOPHILS % (AUTO) 0.1 % (0.0-8.0); HEMATOCRIT 32.7 % (36-48); LYMPHOCYTES % (AUTO) 3.8 % (21.0-51.0); MEAN CORPUSCULAR HGB CONC 32.7 g/dL (32.0-36.0); MEAN CORPUSCULAR VOLUME 97.9 fL (79-99); MONOCYTES % (AUTO) 12.2 % (3.0-13.0); NEUTROPHILS % (AUTO) 83.8 % (40.0-77.0); NUCLEATED RED BLOOD CELLS 0.3 % (0.0-0.19); PLATELET COUNT (AUTO) 152 K/uL (130-400); RED BLOOD CELL COUNT(AUTO) 3.34 MIL/uL (4.00-5.50); WHITE BLOOD COUNT (AUTO) 20.2 K/uL (4.8-10.8)
[2018-10-25 04:19] LABS: ALBUMIN 2.1 g/dL (3.5-5.0); BILIRUBIN,DIRECT 1.1 mg/dL (0.0-0.3); BILIRUBIN,TOTAL 2.1 mg/dL (0.2-1.0); CREATININE 2.9 mg/dL (0.5-1.5); POTASSIUM 4.7 mmol/L (3.5-5.1); TOTAL PROTEIN, SERUM 5.5 g/dL (6.0-8.3)
[2018-10-25] MEDS ORDERED: LORAZEPAM 2 MG/ML 1 ML VIAL IVP PRN ×2 (05:15→09:45)
[2018-10-25] MEDS ORDERED: LORAZEPAM 2 MG/ML 1 ML VIAL ONE ×2 (05:17→14:52)
[2018-10-25] MEDS ORDERED: NOREPINEPHRINE 4MG/NS 250ML 250 ML IV SCH (06:15)
--- NOTE | 2018-10-25 07:15 | NUR ---
CLEM WITNESSED PATIENT HAVING TONIC-CLONIC SIEZURE. ATIVAN IV LAST GIVEN @ 0515 PER MD ORDER. SIEZURE LASTED APPROXIMATELY 5 MINUTES UNTIL 0720. NOW POSTICTAL WITH HR 124, BP 121/69, 19 RESP @ 92% SPO2. WILL CONTINUE TO MONITOR AND NOTIFY DR MALCOLM THIS AM
[2018-10-25] MEDS: LEVOTHYROXINE 50 MCG TABLET PO SCH (07:30)
[2018-10-25] MEDS: THIAMINE HCL 100 MG/ML 2ML VIAL IV SCH (07:35)
[2018-10-25] MEDS: RIFAXIMIN 550 MG TABLET PO SCH (07:36)
[2018-10-25] MEDS: NEOMYCIN SULFATE 500 MG TAB PO SCH (07:36)
[2018-10-25] MEDS: INSULIN HUMULIN R 100 UNIT/ML 3ML SQ SCH ×2 (07:37→11:30)
--- NOTE | 2018-10-25 07:42 | NUR ---
0510 Noted patient having a seizure, eyelids flickering, mouth twitching. Call placed to [employer] (Jorge Perera [employer] CONTR[employer] SUPERVISOR control panel operator). Full report given. Orders received. 0520 Ativan 1mg given IV as ordered. Readily stopped seizures. 0605 Reported Ammonia level of 370 to [facility]. KUB done. 0619 Levophed drip, PICC line ordered per [employer]. 0700 Levophed infusing at 2 ml/hr. Systolic BP up to 120.
[2018-10-25] MEDS ORDERED: LEVETIRACETAM 750 MG in SODIUM CHLORIDE 0.9% 100 ML IV SCH (09:45)
[2018-10-25] MEDS ORDERED: ZOSYN 3.375GM+NS 50ML 50 ML IV SCH (09:45)
--- NOTE | 2018-10-25 09:50 | NUR ---
EMOTIONAL SUPPORT Sw met with pt's father Azalea Rueda [phone]. Father states pt and her 4 kids 15,13 and 12 live with him. Father reports pt has been ill for sometime with cirrhosis and colon cancer. Nurse Simpson and Dr Flor updated dad on current condition and poor prognosis. Father states he is waiting for sons to arrive for emotional support. Sw discussed code status with father who states he will discuss with sons. Father reports that he has lost a son to "same thing" and his dies of cancer. Father emotional. Sw provided emotional support.
--- NOTE | 2018-10-25 10:07 | NUR ---
RAYMUNDOP Sw met with pt's father Azalea Rueda [phone]. Pt lives with her father and her 4 kids, 15,13twins, 12. Pt has SSD, brother who is daily provider, no DME or HH. Prognosis for pt is very poor, DCP unknown at this time. Cm and SW to follow and assist as needed Addendum: 10/25/18 at 1014 by BUCKY WILLIAM Amended: Links added.
[2018-10-25] MEDS: FAMOTIDINE/PF 20 MG/2 ML VIAL IV SCH (10:40)
[2018-10-25] MEDS: SODIUM CHLORIDE 0.9% 1000ML 1,000 ML IV SCH (10:41)
[2018-10-25 10:50] LABS: INR 2.73 (0.85-1.15); PARTIAL THROMBOPLASTIN TIME 82.3 SEC (26.3-35.5); PROTHROMBIN TIME 28.1 SEC (9.6-11.6)
[2018-10-25] MEDS ORDERED: PHYTONADIONE 10 MG/1 ML AMP SQ SCH (11:00)
[2018-10-25] MEDS ORDERED: VASOPRESSIN 125 UNITS in SODIUM CHLORIDE 0.9% 250 ML IV PRN (11:30)
[2018-10-25] MEDS ORDERED: SODIUM CHLORIDE IVP PRN ×2 (11:45)
[2018-10-25] MEDS ORDERED: VASOPRESSIN IVP PRN ×2 (11:45)
[2018-10-25] MEDS ORDERED: FENTANYL CITRATE PF 50 MCG/1 ML 2ML VIAL IVP PRN ×2 (11:45→14:15)
[2018-10-25] MEDS ORDERED: COMPOUND IV MISC 1 EACH IVSOLN MISC PRN (12:30)
[2018-10-25] MEDS ORDERED: SODIUM CHLORIDE 0.9% 250 ML IV ONE (13:11)
--- NOTE | 2018-10-25 13:39 | NUR ---
EMOTIONAL SUPPORT Sw present when Dr Ventura spoke to father and pt's aunt about surgery not being possible at this time related to pt being high risk. Family voiced understanding. Sw discussed code status again with family. Aunt encouraging father to do CPR. Sw present when Dr Solitario spoke to family at bedside and answered all questions asked. Sw discussed DNr and inpt hospice with family.
--- NOTE | 2018-10-25 14:00 | NUR ---
DNR AND WITHDRAWAL OF LIFE SUPPORT AFTER SPEAKING TO FAMILY EXTENSIVELY ABOUT PATIENT'S CURRENT CONDITION, PROGNOSIS, REVIEW OF SYSTEMS, ANSWERING ALL QUESTIONS AND CONCERNS, THE FAMILY HAS DECIDED TO MAKE PATIENT A DNR WELL WITHDRAW LIFE SUPPORT. NOTIFIED BOTH DR TRAYLOR AND DR MALCOLM OF FAMILY WISHES AND BOTH AGREED. ORDERS RECEIVED TO PROCEED WITH EXTUBATION/WITHDRAWAL OF LIFE SUPPORT
[2018-10-25] MEDS ORDERED: LORAZEPAM 2 MG/ML 1 ML VIAL IM PRN (14:15)
--- NOTE | 2018-10-25 14:28 | NUR ---
WITHDRAWAL Sw contacted [facility] to come say last rites and final prayer with family before withdrawal. and pt's entire family at bedside at this time
[2018-10-25] MEDS ORDERED: FENTANYL CITRATE PF 50 MCG/1 ML 2ML VIAL ONE (14:53)
--- NOTE | 2018-10-25 15:00 | NUR ---
EXTUBATION/WITHDRAWAL OF LIFE SUPPORT PATIENT EXTUBATED TO ROOM AIR PER MD ORDERS. FENTANYL AND ATIVAN GIVEN PER MD ORDER FOR COMFORT MEASURES
--- NOTE | 2018-10-25 15:16 | NUR ---
ASYSTOLE PATIENT ASYSTOLE ON MONITOR, FAMILY AT BEDSIDE NOTIFIED. CRYPTOGRAPHIC CLERK NOTIFIED TO PRONOUNCE. PLEASE REFER TO DOCUMENTATION OF
== END 2018-10-25 15:20 | disposition expired | DRG 279 ==
LOC: EDH 09:16 → EDHIP 09:17 → 3AH 15:02 → 2CH 10-24 08:44
PROVIDERS: ADMIT Internal Medicine Nephrology; ATTEND Internal Medicine Nephrology
PROC: 5A1945Z Respiratory Ventilation, 24-96 Consecutive Hours (ICD-10-PCS; 2018-10-24)
PROC: 0BH17EZ Insertion of Endotracheal Airway into Trachea, Via Natural or Artificial Opening (ICD-10-PCS; 2018-10-24)
PROC: 30233K1 Transfusion of Nonautologous Frozen Plasma into Peripheral Vein, Percutaneous Approach (ICD-10-PCS; principal; 2018-10-25)
DX: K72.91 Hepatic failure, unspecified with coma (principal); J96.90 Respiratory failure, unspecified, unspecified whether with hypoxia or hypercapnia; J90 Pleural effusion, not elsewhere classified; K56.609 Unspecified intestinal obstruction, unspecified as to partial versus complete obstruction; I95.9 Hypotension, unspecified; E11.21 Type 2 diabetes mellitus with diabetic nephropathy; C18.9 Malignant neoplasm of colon, unspecified; K56.7 Ileus, unspecified; D64.9 Anemia, unspecified; E03.9 Hypothyroidism, unspecified; E78.5 Hyperlipidemia, unspecified; K74.60 Unspecified cirrhosis of liver; I10 Essential (primary) hypertension; F10.10 Alcohol abuse, uncomplicated; Z85.038 Personal history of other malignant neoplasm of large intestine; N19 Unspecified kidney failure
CPT/HCPCS: 31500; 36415; 36600; 71045; 74018; 74150; 76700; 80048; 80053; 80076; 80305; 81001; 82140; 82550; 82803; 82948; 83690; 83735; 84443; 84484; 85025; 85027; 85610; 85730; 86850; 86900; 86901; 86927; 87040; 93005; 94002; 94003; A4218; G0378; J0696; J1815; J1953; J2060; J2543; J3010; J3430; J3490; J7030; J7040; P9017